=== PATIENT | female | born 1955 | race Caucasian/White ===

== ENCOUNTER → 2021-04-15 16:32 | Outpatient (CLI) | payer BC, SELFPAY ==
--- NOTE | ~2021-04-15 | MM_ITS ---
EXAMINATION: MM screening [place] BI w karina HISTORY: Screening mammogram. TECHNIQUE: Craniocaudal and mediolateral oblique 3-D tomosynthesis images were obtained and synthetic 2-D images were generated. CAD analysis was submitted and interpreted. COMPARISON: No prior mammogram is available for comparison at this institution. BREAST PARENCHYMAL COMPOSITION: The breasts are almost entirely fatty. FINDINGS: There are scattered bilateral benign calcifications. There is no evidence of suspicious mas s, calcification, or architectural distortion to suggest malignancy in either breast. There has been no suspicious interval change. IMPRESSION: 1. No mammographic evidence of malignancy. 2. Recommend routine screening mammography in one year. BI-RADS Category 2: Benign finding(s). Reviewed, dictated and finalized at location A.
== END ==
PROVIDERS: PCP Family Medicine Adolescent Medicine; Visit Provider Physician Assistant
DX: Z12.31 Encounter for screening mammogram for malignant neoplasm of breast (principal)
CPT/HCPCS: 77063; 77067

== ENCOUNTER → 2021-05-06 10:17 | Outpatient (CLI) | payer BC, SELFPAY ==
--- NOTE | ~2021-05-06 | DEXA_ITS ---
Bone Density Report Name: Ledy Devlin Age: 65 Sex: Female Ethnicity: White Date of : 1955 Indication: postmenopausal; screening for osteoporosis; Referring Provider: Cayden, Elissa Artis Study: Bone densitometry was performed. Exam Date: May 06, 2021 Accession number: [id number] Bone Density: Region BMD T-score Z-score Classification AP Spine (L1-L4) 0.893 -1.4 0.4 Osteopenia Femoral Neck (Left) 0.623 -2.0 -0.5 Osteopenia Total Hip (Left) 0.883 -0.5 0.8 Normal Femoral Neck (Right) 0.586 -2.4 -0.8 Osteopenia Total Hip (Right) 0.887 -0.5 0.8 Normal Total Hip Mean 0.885 -0.5 0.8 Normal World Health Organization criteria for BMD impression classify patients as: Normal (T-score at or above -1.0), Osteopenia (T-score between -1.0 and -2.5), or Osteoporosis (T-score at or below -2.5). 10-year Fracture Risk(1): Major Osteoporotic Fracture 10% Hip Fracture 1.7% Reported Risk Factors: [place] (), Neck BMD=0.586, BMI=48.4 Input outside FRAX(R) limits. Adjusted to:Jtwayx=605 kg (1) FRAX(R) Version 3.08. Fracture probability calculated for an untreated patient. Fracture probability may be lower if the patient has received treatment. Clinical Information Provided by Patient: Has used the following medications: Vitamin D, Calcium Patient maximum height was 63.3 Menopause Age: 60 No regular weight bearing exercise Does not regularly consume dairy products Drinks caffeinated beverages Onset of menses at age 15 Number of children 2 Impression: The patient has low bone mass, based on the Right Femoral Neck T-score. The patient has an estimated ten-year risk of hip fracture of 1.7% and an estimated ten-year risk of major fracture of 10%, based on the WHO FRAX algorithm. Discussion: BONE DENSITY IS LOW AT ONE OR MORE SKELETAL SITES. This patient's lowest T-score is low at one or more skeletal sites. It meets the World Health Organization's (WHO) criteria for ?low bone mass? (T-score between -1.0 and -2.5). The patient's 10-year risk of fracture as calculated by FRAX is less than the threshold where pharmacological therapy is recommended by the National Osteoporosis Foundation (NOF). However, all treatment decisions require clinical judgment and consideration of individual patient factors, including patient preferences, comorbidities, previous drug use, risk factors not captured in the FRAX model (e.g., frailty, falls, vitamin D deficiency, increased bone turnover, interval significant decline in bone density) and possible under or overestimation of fracture risk by FRAX. The patient should follow a healthful lifestyle (good nutrition with adequate calcium and vitamin D, and appropriate weight-bearing exercise). Follow-Up: Consider repeating this study in 2 to 3 years to reassess this patient's st
== END ==
PROVIDERS: PCP Family Medicine Adolescent Medicine; Visit Provider Physician Assistant
DX: Z78.0 Asymptomatic menopausal state (principal); M85.89 Other specified disorders of bone density and structure, multiple sites
CPT/HCPCS: 77080

== ENCOUNTER → 2022-01-30 14:21 | Outpatient (CLI) | payer BC, SELFPAY ==
--- NOTE | ~2022-01-30 | XR_ITS ---
XR chest 2V DATE: 01/30/2022 14:54 INDICATION: Dyspnea TECHNIQUE: 2 views COMPARISON: November 12, 2015 CTA chest November 12, 2015 2 view chest FINDINGS: Cardiomegaly. There is pulmonary vascular redistribution suggesting mild pulmonary venous h ypertension. No pulmonary infiltrate or consolidation, pleural effusion or pneumothorax is detected. Aortic arch calcification and mild aortic unfolding. Diffuse osteopenia. There is degenerative spurring of the thoracic spine. IMPRESSION: Cardiomegaly, pulmonary vascular redistribution, suggesting mild congestive change Reviewed, dictated and finalized at location B. IMPRESSION: Cardiomegaly, pulmonary vascular redistribution, suggesting mild co ngestive change
== END ==
PROVIDERS: PCP Family Medicine Adolescent Medicine; Visit Provider Family Medicine Adolescent Medicine
DX: R06.00 Dyspnea, unspecified (principal); I51.7 Cardiomegaly; I70.0 Atherosclerosis of aorta; M47.814 Spondylosis without myelopathy or radiculopathy, thoracic region
CPT/HCPCS: 71046

== ENCOUNTER → 2022-02-24 14:16 | Outpatient (CLI) | payer BC, SELFPAY ==
--- NOTE | ~2022-02-24 | XR_ITS ---
EXAMINATION: XR chest 2V 02/24/2022 14:28 INDICATION: Chronic pulmonary edema PROCEDURE: 2 view chest COMPARISON: 01/30/2022 FINDINGS: There are patchy bilateral infiltrates peripherally of the mid and lower lungs, suspicious for pneumonia. The cardiomediastinal silhouette is within normal limits. There are no pleural effusi ons. There is no pneumothorax suspected. IMPRESSION: 1: Patchy bilateral infiltrates of the mid and lower lungs, suspicious for pneumonia. Reviewed, dictated and finalized at location B. IMPRESSION: 1: Patchy bilateral infiltrates of the mid and lower lungs, suspicious for pne umonia.
== END ==
PROVIDERS: PCP Family Medicine Adolescent Medicine; Visit Provider Family Medicine Adolescent Medicine
DX: J81.1 Chronic pulmonary edema (principal); R91.8 Other nonspecific abnormal finding of lung field
CPT/HCPCS: 71046

== ENCOUNTER 2025-02-08 08:47 | Outpatient (CLI) | payer BC, SELFPAY ==
--- NOTE | ~2025-02-08 | NM_ITS ---
EXAMINATION: NM juan carlos stress w perfusion DATE: 02/08/2025 12:53 INDICATION: Other forms of dyspnea TECHNIQUE: Rest images were obtained following intravenous administration of 10.3 mCi Tc99m tetrofosm in (Myoview). The patient was infused intravenously with Lexiscan (Regadenoson). Then, 33.9 mCi Tc99m tetrofosmin (Myoview) was administered intravenously, and stress images were obtained. Data was arthur nstructed into short axis and horizontal and vertical long axis SPECT images. Gated SPECT images were also obtained. COMPARISON: None. FINDINGS: There is no definite reversible or fixed perfusion abnormality to suggest ischemia or infar ction. There is normal left ventricular chamber size, wall motion and ejection fraction. Left ventr icular ejection fraction measures >70%. IMPRESSION: 1. Normal myocardial perfusion at rest and during stress. 2. Left ventricular ejection fraction measuring >70%. Reviewed, dictated and finalized at location A.
--- NOTE | 2025-02-08 09:06 | ECHO_ITS ---
Patient Info Name: Ledy Devlin Age: 69 years : 1955 Gender: Female Ht: 64 in Wt: 276 lbs BSA: 2.45 m2 HR: 84 bpm BP: 141 / 83 mmHg Technical Quality: Poor Exam Date: 02/08/2025 9:18 AM Patient Status: O Admit Date: 02/08/2025 Exam Type: CA echo dop color flow w con Complete two-dimensional, color flow and Doppler transthoracic echocardiogram is performed with contrast to opacify the left ventricle and to improve the deliniation of the left ventricle endocardial borders. Staff Referring Physician: Gabe Dominguez DO Awning Hanger Helper: Gricelda Everett Attending Provider: Gabe Dominguez DO Contrast/Agitated Saline Contrast/Ag. Saline: Definity Amount: 5.00 ml New IV Access: Left and Dorsum of Hand Reason for Poor Study: patient body habitus Summary 1. Left ventricular chamber dimension is normal. 2. Left ventricular systolic function is normal, estimated at 60-65. 3. The left ventricular diastolic function is grade I diastolic dysfunction. 4. Definity contrast administered improved wall motion interpretation. 5. E/e' 8 is minimally elevated. 6. The aortic valve is not well visualized. Cannot determine number of aortic valve leaflets. 7. No pulmonary hypertension, estimated pulmonary arterial systolic pressure is 28 mmHg. 8. There is trivial pericardial effusion. Left Ventricle E/e' 8 is minimally elevated. Left ventricular chamber dimension is normal. Left ventricular systolic function is normal, estimated at 60-65. The left ventricular diastolic function is grade I diastolic dysfunction. Definity contrast administered improved wall motion interpretation. Right Ventricle Right ventricular chamber dimension is normal. Right ventricular systolic function is normal and with normal TAPSE 2.2 cm. Left Atria Left atrial chamber dimension is normal. Right Atria Right atrial chamber dimension is normal. Aortic Valve The aortic valve is not well visualized. Cannot determine number of aortic valve leaflets. There is no aortic valve stenosis. There is no aortic valve regurgitation. Pulmonic Valve There is no pulmonic regurgitation. Mitral Valve There is no mitral valve stenosis. There is no mitral valve regurgitation. Tricuspid Valve There is no tricuspid valve regurgitation. No pulmonary hypertension, estimated pulmonary arterial systolic pressure is 28 mmHg. Pericardium/Pleural There is trivial pericardial effusion. Inferior Vena Cava Normal inferior vena cava with >50% collapse upon inspiration consistent with normal right atrial pressure, 5 mmHg. Aorta The aortic root size at the sinus of Valsalva is normal. Left Ventricular Outflow Tract Name Value Normal LVOT 2D LVOT Diameter 2.0 cm LVOT Doppler LVOT Peak Velocity 96 cm/s LVOT Peak Gradient 4 mmHg LVOT Mean Gradient 2 mmHg LVOT VTI 19 cm LVOT Stroke Volume 63 ml Pulmonic Valve Name Value Normal PV Doppler PV Peak Velocity 89 cm/s PV Peak Gradient 3 mmHg Mitral Valve Name Value Normal MV Diastolic Function MV E Peak Velocity 61 cm/s MV A Peak Velocity 72 cm/s MV E/A 0.8 MV Decel Time (PW) 218 ms MV Annular TDI MV E/e' (Septal) 7.6 MV E/e' (Lateral) 10.3 MV E/e' (Average) 8.9 Tricuspid Valve Name Value Normal TV Regurgitation Doppler TR Peak Velocity 241 cm/s TR Peak Gradient 23 mmHg Estimated PAP/RSVP RA Pressure 5 mmHg <=5 PA Systolic Pressure 28 mmHg <36 RV Systolic Pressure 28 mmHg <36 TV Annular TDI TV Lateral Betsy s' Velocity 9.4 cm/s >=9.5 Aortic Valve Name Value Normal AV Regurgitation 2D LVOT Area 3.3 cm2 Ventricles Name Value Normal LV Dimensions 2D/MM IVS Diastolic Thickness (2D) 0.9 cm 0.6-1.0 LVID Diastole (2D) 4.5 cm 3.8-5.2 LVIW Diastolic Thickness (2D) 0.9 cm 0.6-0.9 LVID Systole (2D) 3.5 cm 2.2-3.5 LVOT Diameter 2.0 cm LV Mass (2D Cubed) 137.11 g 67.00-162.00 LV Mass Index (2D Cubed) 56 g/m2 43-95 Relative Wall Thickness (2D) 0.42 <=0.42 LV Fractional Shortening/Ejection Fraction 2D/MM LV Fractional Shortening (2D) 22 % 27-45 LV EF (2D Teichholz) 44 % LV Diastolic Volume (4C MOD) 122 ml LV EF (4C MOD) 64 % LV Diastolic Volume (2C MOD) 117 ml LV EF (2C MOD) 52 % LV Diastolic Volume (BP MOD) 124 ml 46-106 LV Diastolic Volume Index (BP MOD) 51 ml/m2 29-61 LV Systolic Volume (BP MOD) 51 ml 14-42 LV Systolic Volume Index (BP MOD) 21 ml/m2 8-24 LV EF (BP MOD) 59 % 54-74 LV Diastolic Length (4C) 7.2 cm LV Systolic Length (4C) 5.7 cm LV Stroke Volume (4C MOD) 78 ml Atria Name Value Normal LA Dimensions LA Volume (4C A-L) 65 ml LA Volume (BP A-L) 60 ml RA Dimensions RA Systolic [place] Length (4C) 5.5 cm 2.2-2.8 RA Area (4C) 20.0 cm2 <=18.0 Report Signatures
--- NOTE | 2025-02-08 09:44 | EST_ITS ---
Patient Info Name: Ledy Devlin Age: 69 years : 1955 Gender: Female Ht: 64 in Wt: 276 lbs BSA: 2.45 m2 Exam Date: 02/08/2025 9:44 AM Patient Status: O Admit Date: 02/08/2025 Exam Type: CA stress juan carlos w NM A regadenoson stress test was performed. Staff Referring Physician: Gabe Dominguez DO Attending Provider: Gabe Dominguez DO Exercise Technologist: Michaela Thacker Exercise Physician: Gabe Dominguez DO Summary 1. 1. Negative lexiscan stress test for ischemic ST changes by ECG criteria. 2. 2. Stable hemodynamics throughout the test. 3. 3. Nuclear scan to follow and will be reported separately. Please correlate with it. 4. 4. Patient informed of the above results. Protocol: Lexiscan Stress ECG Details Stage: REST Duration (min): 0 min : 49 sec HR (bpm): 79 SBP (mmHg): 121 DBP (mmHg): 55 Stage: REST Duration (min): 5 min : 41 sec HR (bpm): 83 SBP (mmHg): 121 DBP (mmHg): 55 Stage: STAGE 1 Duration (min): 1 min : 0 sec HR (bpm): 102 SBP (mmHg): 121 DBP (mmHg): 56 Stage: RECOVERY Duration (min): 1 min : 0 sec HR (bpm): 103 SBP (mmHg): 157 DBP (mmHg): 69 Stage: RECOVERY Duration (min): 2 min : 0 sec HR (bpm): 98 SBP (mmHg): 157 DBP (mmHg): 69 Stage: RECOVERY Duration (min): 3 min : 0 sec HR (bpm): 94 SBP (mmHg): 157 DBP (mmHg): 69 Stage: RECOVERY Duration (min): 3 min : 12 sec HR (bpm): 94 SBP (mmHg): 100 DBP (mmHg): 53 Rest HR: 83 bpm Peak HR: 112 bpm Rest Sys BP: 121 mmHg Peak Sys BP: 157 mmHg Max Pred HR: 151 bpm % Max Pred HR: 74 % Target HR: 128 bpm Max RPP: 17,584 bpm*mmHg Termination Reason: Completed protocol Cardiac Symptoms: Shortness of breath, Stomach discomfort Total Time: 1 min : 0 sec Rest Trevino BP: 55 mmHg Peak Trevino BP: 69 mmHg Total Dose: 0.4 mg Resting ECG Sinus rhythm. Stress ECG No ST changes. Arrhythmias None. Report Signatures
[2025-02-08] MEDS: PERFLUTREN LIPID MICROSPHERES 1.5 ML VIAL DILUTED TO 10 ML TOTAL VOLUME IV PUSH (10:25)
--- NOTE | 2025-02-08 12:27 | IVDEFINITY ---
Prior to administration of IV Definity the patient was educated on the risks and benefits of the imaging enhancing agent including potential adverse side effects. The patient verbalized understanding. Allergies were verified. No exclusion criteria were identified and at least one of the following inclusion criteria were met: 1) physician request, 2) patient technically difficult to image (per the [place] [employer] guidelines of two or more segments not discernable within the apical view), or 3) questionable left ventricular function. ?
== END 2025-02-08 08:48 | disposition home or self-care (01) ==
PROVIDERS: PCP Family Medicine Adolescent Medicine; Visit Provider Internal Medicine Cardiovascular Disease
DX: R06.09 Other forms of dyspnea (principal); I51.89 Other ill-defined heart diseases; I31.39 Other pericardial effusion (noninflammatory)
CPT/HCPCS: 78452; 93017; A9502; C8929; J2785; Q9957